=== PATIENT | female | born 1985 | race Caucasian/White ===

== ENCOUNTER 2025-08-27 11:57 | Emergency (ER) | payer SELFPAY ==
[2025-08-27] MEDS: Acetaminophen/HYDROcodone 325-5 MG Tab PO ONE (13:17)
== END 2025-08-27 15:03 | disposition home or self-care (01) ==
LOC: MW.ED 11:57
DX: M54.6 Pain in thoracic spine (principal); Z75.3 Unavailability and inaccessibility of health-care facilities; Z88.6 Allergy status to analgesic agent; Z79.899 Other long term (current) drug therapy
CPT/HCPCS: 72128; 99283; A9270; 99284

== ENCOUNTER 2025-09-16 08:15 | Emergency (ER) | payer SELFPAY | END 2025-09-16 10:49 | disposition home or self-care (01) | LOC: MW.ED 08:15 | DX: M25.561 Pain in right knee (principal); G89.29 Other chronic pain; M54.50 Low back pain, unspecified; Z90.49 Acquired absence of other specified parts of digestive tract; Z88.6 Allergy status to analgesic agent | CPT/HCPCS: 73562-26-RT; 73562-RT; 99283 ==